=== PATIENT | female | born 1990 | race Two or more races ===

== ENCOUNTER 2021-06-27 14:54 | Emergency (ER) | payer OTHER ==
[~2021-06-27] VITALS: Ht 152.4 cm; Wt 47.6 kg
[2021-06-27] MEDS ORDERED: DICLOFENAC POTA50 MG PO (21:42)
[2021-06-27] MEDS ORDERED: ORPHENADRINE C100 MG PO (21:42)
== END 2021-06-27 22:08 ==
LOC: ER 14:54
DX: S30.1XXA Contusion of abdominal wall, initial encounter (principal); S30.202A Contusion of unspecified external genital organ, female, initial encounter; S60.211A Contusion of right wrist, initial encounter; S30.0XXA Contusion of lower back and pelvis, initial encounter; V49.9XXA Car occupant (driver) (passenger) injured in unspecified traffic accident, initial encounter; Y93.9 Activity, unspecified; Y92.413 State road as the place of occurrence of the external cause; Y99.9 Unspecified external cause status; N28.1 Cyst of kidney, acquired; Z91.013 Allergy to seafood

== ENCOUNTER 2024-05-16 18:21 | Emergency (ER) | payer OTHER ==
[~2024-05-16] VITALS: Ht 157.5 cm; Wt 50.8 kg
[~2024-05-16 18:21] MED LIST: DICLOFENAC POTA50 MG PO; ORPHENADRINE C100 MG PO
[2024-05-16 18:38] VITALS: BP 112/74; O2SAT 98
[2024-05-16] MEDS ORDERED: 0.9 % SODIUM CHLORIDE 1,000 ML IV SCH (20:00)
[2024-05-16] MEDS ORDERED: KETOROLAC TROMETHAMINE 30 MG VIAL IV ONE (20:00)
[2024-05-16] MEDS ORDERED: KETOROLAC TROMETHAMINE 30 MG VIAL ONE (20:05)
[2024-05-16 20:29] LABS: HEMATOCRIT 36.2 % (36.0-45.00); HEMOGLOBIN 12.2 g/dL (12.0-15.00); MEAN CELL VOLUME 92.2 fL (80.00-100.00); MEAN CORPUSCULAR HEMOGLOBIN 31.2 pg (27.00-32.0); MEAN CORPUSCULAR HGB CONC 33.8 g/dl (32.0-36.0); PLATELET COUNT 258 K/uL (150-450); RED BLOOD COUNT 3.92 M/uL (4.00-6.00); RED CELL DISTRIBUTION WIDTH 13.6 % (11.5-14.5)
[2024-05-16 20:51] LABS: ALBUMIN 4.1 gm/dL (3.4-5.0); BILIRUBIN TOTAL 2.03 mg/dL (0.3-1.2); CALCIUM 8.8 mg/dL (8.5-10.1); CREATININE SERUM 0.76 mg/dL (0.55-1.02); GFR 87.64; GLOBULINA 3.6 G/DL (2.4-3.5); POTASSIUM 3.59 mEq/L (3.5-5.1); TOTAL PROTEIN 7.7 gm/dL (6.4-8.2)
[2024-05-16] MEDS ORDERED: CEPHALEXIN500 M1 PO (22:40)
[2024-05-16] MEDS ORDERED: KETO10TA2 PO (22:40)
[2024-05-16] MEDS ORDERED: TAMS0.4C PO (22:40)
[2024-05-16] MEDS ORDERED: ONDANSETRON ODT8 MG PO (22:40)
== END 2024-05-16 22:50 | disposition home or self-care (01) ==
LOC: ER 18:23
PROVIDERS: General Practice
DX: N20.1 Calculus of ureter (principal); Z88.2 Allergy status to sulfonamides; Z91.013 Allergy to seafood; N20.0 Calculus of kidney